=== PATIENT | female | born 1975 | race Caucasian/White ===

== ENCOUNTER 2018-07-06 12:18 | Inpatient (IN) ==
[2018-07-06] MEDS ORDERED: Ondansetron 4 MG/2 ML VIAL ONE ×2 (12:26→16:58)
[2018-07-06] MEDS ORDERED: Ondansetron 4 MG/2 ML VIAL IVP ONE (12:31)
[2018-07-06] MEDS ORDERED: *HR* FentaNYL (PF) 100 MCG/2 ML VIAL IVP ONE ×3 (12:33→14:10)
--- NOTE | 2018-07-06 12:37 | Emergency Department Note ---
Disposition Clinical Impression: Volvulus of intestine Abdominal pain Qualifiers: Abdominal location: unspecified location Qualified Code(s): R10.9 - Unspecified abdominal pain Disposition: Admitted As Inpatient Condition: Fair Referrals: Ignacio Yun MD [Primary Care Provider] - Forms: ED Satisfaction Letter, Work/School Release Time of Disposition: 13:22 Abdominal Pain HPI - General Chief Complaint: ED Abdominal Pain Stated Complaint: Abdominal Pain Time Seen by Provider: 07/06/18 12:24 Source: patient, EMS Mode of arrival: EMS Limitations: no limitations Nursing Notes Reviewed: Yes Vital Signs Reviewed: Yes - History of Present Illness HPI Narrative: Back pain started last night. Abdominal pain started just prior to arrival. She admits to eating a pancake earlier this morning. Nausea with emesis 1. No other reported acute GI/ symptoms. She states her abdominal pain is diffuse. She has never experienced pain like this in the past. Pt Subjective Complaint: abdominal pain Onset (ago): minute(s) Consistency: constant Location: diffuse Pain Severity: severe Pain Scale: 9 Quality: aching Radiation: back Migration to: no migration Improves with: nothing Worsens with: nothing Associated symptoms: Reports: nausea, vomiting Treatments prior to arrival: none - Related Data Home Medications Medication Instructions Recorded Confirmed ALPRAZolam [Xanax 0.5 MG Tablet] 0.5 mg PO Q8H 07/06/18 07/06/18 Methocarbamol [Robaxin] 750 mg PO BID 07/06/18 07/06/18 Pregabalin [Lyrica] 150 mg PO BID 07/06/18 07/06/18 Allergies Allergy/AdvReac Type Severity Reaction Status Date / Time codeine Allergy Hives Verified 07/06/18 14:41 Cyclobenzaprine Allergy Joint Pain Verified 07/06/18 14:41 [From Flexeril] tramadol [From Ultram] Allergy Rash Verified 07/06/18 14:41 morphine AdvReac Nausea Verified 07/06/18 14:41 All systems ED: reviewed and negative except as stated. Constitutional: Reports: as per HPI Eyes: Reports: as per HPI ENT ED: Reports: as per HPI Cardiovascular: Reports: as per HPI Respiratory: Reports: as per HPI Gastrointestinal: Reports: abdominal pain, nausea, vomiting Genitourinary: Reports: as per HPI Musculoskeletal: Reports: back pain Integumentary: Reports: as per HPI Neurological: Reports: as per HPI Psychiatric: Reports: as per HPI Endocrine: Reports: as per HPI Hematological/Lymphatic: Reports: as per HPI Allergic/Immunologic: Reports: as per HPI Abdominal Pain PMH - Past Medical History Medical history: Reports: fibromyalgia, other Female Surgical History: Reports: hysterectomy, other NEONATAL ICU COORDINATOR history: Reports: no NEONATAL ICU COORDINATOR history Psychiatric history: Reports: anxiety, depression - Social History Smoking status: Current every day smoker Alcohol use: Reports: none Drug use: Reports: none Physical Exam Tearful - General Limitations: no limitations General appearance: alert, anxious - Head Head exam: atraumatic - Eye Eye exam: Present: normal appearance - ENT ENT exam: normal exam - Neck Neck exam: Present: normal inspection - Chest Chest inspection: Present: normal inspection, symmetric chest wall rise - Respiratory Respiratory exam: Present: normal lung sounds bilaterally - Cardiovascular Cardiovascular exam: Present: regular rate, normal rhythm, normal heart sounds - Abdominal Exam Abdominal exam: Present: soft, tenderness (Mild diffuse tenderness without guarding, rebound, rigidity), normal bowel sounds. Absent: distention, guarding , rebound - Rectal Exam Rectal exam: Present: deferred - Extremities Exam Extremities exam: Present: normal inspection - Neurological Exam Neurological exam: Present: alert, oriented X3, CN II-XII intact - Psychiatric Psychiatric exam: Present: anxious - Skin Skin exam: Present: warm, dry, intact Course Course Narrative: Diffuse abdominal pain starting just prior to arrival. Patient appears uncomfortable on exam. Workup including CT abdomen and pelvis without IV or oral contrast as well as labs and urinalysis initiated. Patient will be given symptomatically medications - Reevaluation(s) Reevaluation #1: CT findings discussed with the radiologist. 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 Call placed to surgeon legal receptionist Reevaluation #2: Dr. Delong recs repeating CT abd/pelvis with IV and oral contrast Reevaluation #3: Pain persist. Case discussed with the surgeon again who had spoken with the radiologist. The surgeon recommends admission to the medicine service. Additional Reevaluation(s): I reread the transcribed report from the most recent CT scan and now says suggestion of midgut volvulus. I then spoke with the interpreting radiologist who states he amended the diagnosis but inform the surgeon and not me. I will again discussed this case with the surgeon and arrange admission - Consultations Consultation #1: Call placed to Dr. Delong, surgery legal receptionist Time: 13:22 Consultation #2: call again placed to Dr. Delong Time: 15:51 Vital Signs Temperature 98.5 F 07/06/18 12:22 Pulse Rate 92 07/06/18 12:22 Respiratory Rate 16 07/06/18 12:22 Blood Pressure 126/100 07/06/18 12:22 O2 Sat by Pulse Oximetry 98 07/06/18 12:22 Temperature 98.5 F 07/06/18 12:22 Pulse Rate 81 07/06/18 13:01 Respiratory Rate 16 07/06/18 13:01 Blood Pressure 113/47 07/06/18 13:01 O2 Sat by Pulse Oximetry 100 07/06/18 13:01 Oxygen Delivery Oxygen Delivery Room Air Abdominal Pain - Lab Data Lab results reviewed: Yes I reviewed the patient's lab results. Result diagrams: 07/06/18 12:37 07/06/18 12:37 Lab Results 07/06/18 07/06/18 07/06/18 Range/Units 12:37 12:37 12:37 WBC 11.0 (4.3-11.1) K/mcL RBC 4.48 (3.82-4.97) M/mcL Hgb 13.6 (11.5-15.4) g/dL Hct 40.0 (35.3-44.9) % MCV 89.3 (83.0-100.0) fL MCH 30.4 (28.0-33.3) pg MCHC 34.0 (31.6-35.5) g/dL RDW 13.4 (11.5-14.5) % Plt Count 244 (140-400) K/mcL MPV 10.0 (9.4-12.4) fL Immature Gran % 0.4 (0-4) % Seg Neutrophils % 51.9 % Lymphocytes % 40.6 % Monocytes % 6.3 % Eosinophils % 0.6 % Basophils % 0.2 % Neutrophils # 5.7 (1.6-8.9) K/mcL Lymphocytes # 4.5 (0.6-4.6) K/mcL Monocytes # 0.7 (0.0-1.3) K/mcL Eosinophils # 0.1 (0.0-0.6) K/mcL Basophils # 0.0 (0.0-0.2) K/mcL PT 10.6 (9.4-12.1) Seconds INR 0.9 Sodium 137 (136-145) mEq/L Potassium 3.4 L (3.5-5.1) mEq/L Chloride 101 (98-107) mEq/L Carbon Dioxide 24 (23-29) mEq/L BUN 11 (6-20) mg/dL Creatinine 0.70 (0.60-1.20) mg/dL Est GFR ( Amer) > 60 (> 60) Est GFR (Non-Af Amer) > 60 (> 60) BUN/Creatinine Ratio 16 (6-26) Glucose 141 H (70-105) mg/dL Calculated Osmolality 286 (280-300) Lactic Acid (0.5-2.2) mmol/L Calcium 9.9 (8.6-10.3) mg/dL Total Bilirubin 0.5 (0.3-1.0) mg/dL Direct Bilirubin 0.1 (0.0-0.2) mg/dL Indirect Bilirubin 0.4 (0.0-1.2) mg/dL AST 24 (13-39) Units/L ALT 18 (7-52) Units/L Alkaline Phosphatase 86 (34-104) Units/L Troponin I < 0.03 (< 0.04) ng/mL Serum Total Protein 8.1 (6.4-8.9) g/dL Albumin 4.5 (3.5-5.7) g/dL Globulin 3.6 H (2.4-3.5) g/dL Albumin/Globulin Ratio 1.3 (1.1-2.2) Lipase 35 (11-82) Units/L Urine Color (Yellow) Urine Clarity (Clear) Urine pH (5.0-8.0) pH Units Ur Specific [place] (1.010-1.025) Urine Protein (Neg-Trace) mg/dL Urine Glucose (UA) (Normal) mg/dL Urine Ketones (Negative) mg/dL Urine Blood (Negative) Urine Nitrite (Negative) Urine Bilirubin (Negative) Urine Urobilinogen (Normal) mg/dL Ur Leukocyte Esterase (Negative) Urine Microscopic RBC (0-3) per hpf Urine Microscopic WBC (0-3) per hpf Ur Squamous Epith Cells (None-Few) per lpf Urine Bacteria (None-Few) per hpf Hyaline Casts (None-Few) per lpf Ur Culture Indicated? (NO) 07/06/18 07/06/18 Range/Units 12:37 13:11 WBC (4.3-11.1) K/mcL RBC (3.82-4.97) M/mcL Hgb (11.5-15.4) g/dL Hct (35.3-44.9) % MCV (83.0-100.0) fL MCH (28.0-33.3) pg MCHC (31.6-35.5) g/dL RDW (11.5-14.5) % Plt Count (140-400) K/mcL MPV (9.4-12.4) fL Immature Gran % (0-4) % Seg Neutrophils % % Lymphocytes % % Monocytes % % Eosinophils % % Basophils % % Neutrophils # (1.6-8.9) K/mcL Lymphocytes # (0.6-4.6) K/mcL Monocytes # (0.0-1.3) K/mcL Eosinophils # (0.0-0.6) K/mcL Basophils # (0.0-0.2) K/mcL PT (9.4-12.1) Seconds INR Sodium (136-145) mEq/L Potassium (3.5-5.1) mEq/L Chloride (98-107) mEq/L Carbon Dioxide (23-29) mEq/L BUN (6-20) mg/dL Creatinine (0.60-1.20) mg/dL Est GFR ( Amer) (> 60) Est GFR (Non-Af Amer) (> 60) BUN/Creatinine Ratio (6-26) Glucose (70-105) mg/dL Calculated Osmolality (280-300) Lactic Acid 2.7 H (0.5-2.2) mmol/L Calcium (8.6-10.3) mg/dL Total Bilirubin (0.3-1.0) mg/dL Direct Bilirubin (0.0-0.2) mg/dL Indirect Bilirubin (0.0-1.2) mg/dL AST (13-39) Units/L ALT (7-52) Units/L Alkaline Phosphatase (34-104) Units/L Troponin I (< 0.04) ng/mL Serum Total Protein (6.4-8.9) g/dL Albumin (3.5-5.7) g/dL Globulin (2.4-3.5) g/dL Albumin/Globulin Ratio (1.1-2.2) Lipase (11-82) Units/L Urine Color Yellow (Yellow) Urine Clarity Clear (Clear) Urine pH 7.5 (5.0-8.0) pH Units Ur Specific [place] 1.028 H (1.010-1.025) Urine Protein 30 H (Neg-Trace) mg/dL Urine Glucose (UA) Normal (Normal) mg/dL Urine Ketones Negative (Negative) mg/dL Urine Blood Negative (Negative) Urine Nitrite Negative (Negative) Urine Bilirubin Negative (Negative) Urine Urobilinogen Normal (Normal) mg/dL Ur Leukocyte Esterase Negative (Negative) Urine Microscopic RBC 0-3 (0-3) per hpf Urine Microscopic WBC 5-15 H (0-3) per hpf Ur Squamous Epith Cells Many H (None-Few) per lpf Urine Bacteria None Seen (None-Few) per hpf Hyaline Casts None Seen (None-Few) per lpf Ur Culture Indicated? NO (NO) - Radiology Data Radiology results reviewed: Yes I reviewed the patient's radiology results. - EKG Data EKG attestation: Yes I reviewed and interpreted this EKG. EKG results narrative: Normal sinus rhythm rate 77 CT 166 QRS 95 QT/QTc 416/471. No acute ST segment elevation Critical Care Time Critical Care Time: Yes Total Critical Care Time: 60 Attestation: The high probability of a clinically significant, sudden or life threatening deterioration of the [] system(s) required my full and direct attention, intervention and personal management. The aggregate critical care time was [] minutes. This time is in addition to time spent performing reported procedures but includes the following: [] Data Review and interpretation [] Patient assessment and monitoring of vital signs [] Documentation [] Medication orders and management
[2018-07-06 12:45] LABS: Basophils % 0.2 %; Eosinophils # 0.1 K/mcL (0.0-0.6); Eosinophils % 0.6 %; Hemoglobin 13.6 g/dL (11.5-15.4); Immature Granulocytes % 0.4 % (0-4); Lymphocytes # 4.5 K/mcL (0.6-4.6); Lymphocytes % 40.6 %; Mean Corpuscular Hemoglobin 30.4 pg (28.0-33.3); Mean Corpuscular Volume 89.3 fL (83.0-100.0); Monocytes # 0.7 K/mcL (0.0-1.3); Monocytes % 6.3 %; Neutrophils # 5.7 K/mcL (1.6-8.9); Platelet Count 244 K/mcL (140-400); Red Blood Count 4.48 M/mcL (3.82-4.97); Red Cell Distribution Width 13.4 % (11.5-14.5); Segmented Neutrophils % 51.9 %
[2018-07-06 12:50] LABS: INR 0.9; Prothrombin Time 10.6 Seconds (9.4-12.1)
[2018-07-06 13:12] LABS: Alanine Aminotransferase 18 Units/L (7-52); Albumin 4.5 g/dL (3.5-5.7); Albumin/Globulin Ratio 1.3 (1.1-2.2); Alkaline Phosphatase 86 Units/L (34-104); Aspartate Amino Transferase 24 Units/L (13-39); BUN/Creatinine Ratio 16 (6-26); Bilirubin,Direct 0.1 mg/dL (0.0-0.2); Bilirubin,Indirect 0.4 mg/dL (0.0-1.2); Bilirubin,Total 0.5 mg/dL (0.3-1.0); Blood Urea Nitrogen 11 mg/dL (6-20); Calcium 9.9 mg/dL (8.6-10.3); Carbon Dioxide 24 mEq/L (23-29); Chloride 101 mEq/L (98-107); Globulin 3.6 g/dL (2.4-3.5); Glucose 141 mg/dL (70-105); Lipase 35 Units/L (11-82); Osmolality,Calculated 286 (280-300); Potassium 3.4 mEq/L (3.5-5.1); Sodium 137 mEq/L (136-145); Total Protein 8.1 g/dL (6.4-8.9); Troponin I < 0.03 ng/mL (< 0.04); eGFR For Non-African Americans > 60 (> 60)
[2018-07-06 13:37] LABS: Bilirubin,Urine Negative (Negative); Blood,Urine Negative (Negative); Clarity,Urine Clear (Clear); Color,Urine Yellow (Yellow); Glucose,Urine (UA) Normal (Normal); Ketones,Urine Negative (Negative); Leukocyte Esterase,Urine Negative (Negative); Nitrite,Urine Negative (Negative); PH,Urine 7.5 pH Units (5.0-8.0); Protein,Urine 30 mg/dL (Neg-Trace); Specific Gravity,Urine 1.028 (1.010-1.025); Urobilinogen,Urine Normal (Normal)
[2018-07-06 13:39] LABS: Bacteria,Urine None Seen per hpf (None-Few); Hyaline Casts,Urine None Seen per lpf (None-Few); RBC,Urine 0-3 per hpf (0-3); Squamous Epithelial Cell,Urine Many per lpf (None-Few)
[2018-07-06] MEDS ORDERED: Isovue-370 500 ML INFUS..BTL IV ONE (13:41)
[2018-07-06] MEDS ORDERED: Isovue-370 500 ML INFUS..BTL PO ONE (15:06)
[2018-07-06] MEDS ORDERED: Ketorolac 15 MG/ML VIAL IVP ONE (16:15)
[2018-07-06] MEDS ORDERED: Famotidine 20 MG/2 ML VIAL IVP ONE (16:15)
[2018-07-06] MEDS ORDERED: 0.9 % Sodium Chloride 2,000 ML ONE (16:44)
[2018-07-06] MEDS ORDERED: Piperacillin/Tazobactam 3.375 GM in 0.9 % Sodium Chloride Mini Bag 100 ML IVPB ONE (16:50)
[2018-07-06] MEDS ORDERED: Dexamethasone 4 MG/ML VIAL ONE (16:58)
[2018-07-06] MEDS ORDERED: *HR* Propofol 200 MG/20 ML VIAL IVP ONE (16:58)
[2018-07-06] MEDS ORDERED: *HR* Midazolam HCl 2 MG/2 ML VIAL ONE (16:58)
[2018-07-06] MEDS ORDERED: Lidocaine -MPF 2% 2 ML VIAL ONE (16:58)
[2018-07-06] MEDS ORDERED: *HR* FentaNYL (PF) 100 MCG/2 ML VIAL ONE ×2 (16:58→18:20)
[2018-07-06] MEDS ORDERED: *HR* Succinylcholine 200 MG/10 ML VIAL IVP ONE (16:59)
[2018-07-06] MEDS ORDERED: Lidocaine -MPF 4% 5 ML AMPUL ONE (16:59)
--- NOTE | 2018-07-06 17:11 | General Surg History&Physical ---
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 All questions were answered. History of Present Illness Chief complaint: abdominal pain HPI: Ms. Hamm is a 42 year old female current smoker, prior QIANA now with 10hr-12hr history of worsening abdominal pain in all quadrants. The patient stated it started with back pain, but quickly developed abdominal pain. No alleviating factors. The pain is associated with nausea and vomiting. She has never had a pain like this before. A CT scan was obtained, which was reviewed and evaluated by me, which demonstrated mesenteric swirling and edema with thickening of the small bowel. 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 General surgery was consulted for management. Past Med Surg Social Fam HX - Past Medical History Medical history: fibromyalgia, other Additional medical history: ulcers Psychiatric history: anxiety, depression - Past Surgical History Additional surgical history: carpal tunnel - Social History Smoking Status: Current every day smoker Smokeless Tobacco Status: No Alcohol use: none Drug use: none - Additional Family History Additional family history: non contributory Medications and Allergies ALPRAZolam [Xanax 0.5 MG Tablet] 0.5 mg PO Q8H 07/06/18 [History] Methocarbamol [Robaxin] 750 mg PO BID 07/06/18 [History] Pregabalin [Lyrica] 150 mg PO BID 07/06/18 [History] 3 Allergy/AdvReac Type Severity Reaction Status Date / Time codeine Allergy Hives Verified 07/06/18 14:41 Cyclobenzaprine Allergy Joint Pain Verified 07/06/18 14:41 [From Flexeril] tramadol [From Ultram] Allergy Rash Verified 07/06/18 14:41 morphine AdvReac Nausea Verified 07/06/18 14:41 Review of Systems ROS unobtainable: due to mental status All systems PM: The remainder of the systems were reviewed and are negative General Surgery Exam Initial Vital Signs Temp Pulse Resp BP Pulse Ox 98.5 F 92 16 126/100 98 07/06/18 12:22 07/06/18 12:22 07/06/18 12:22 07/06/18 12:22 07/06/18 12:22 - General physical appearance well developed, no distress, moderate pain - Eyes other (no scleral icterus), normal ocular movement - ENT normocephalic - Neck no lymphadectomy - Respiratory normal expansion, normal respiratory effort - Cardiovascular Cardiovascular exam: Present: RRR - Abdomen Abdomen general surgery: Present: soft, tender Abdominal Tenderness: Present: RUQ, LUQ, RLQ, LLQ, diffusely - Integumentary Integumentary general surgery: Present: warm and dry - Neurologic Present: CN 2-12 grossly intact - Musculoskeletal Present: normal posture - Psychiatric Psychiatric general surgery: Present: A&Ox3 Results - Labs 07/06/18 12:37 07/06/18 12:37 Abnormal lab results Potassium 3.4 mEq/L (3.5-5.1) L 07/06/18 12:37 Glucose 141 mg/dL (70-105) H 07/06/18 12:37 Globulin 3.6 g/dL (2.4-3.5) H 07/06/18 12:37 Ur Specific [place] 1.028 (1.010-1.025) H 07/06/18 13:11 Urine Protein 30 mg/dL (Neg-Trace) H 07/06/18 13:11 Urine Microscopic WBC 5-15 per hpf (0-3) H 07/06/18 13:11 Ur Squamous Epith Cells Many per lpf (None-Few) H 07/06/18 13:11 All other labs normal. - Imaging CT scan - abdomen: report reviewed, image reviewed CT scan - pelvis: report reviewed, image reviewed
--- NOTE | 2018-07-06 17:18 | Anesthesia Evaluation PreOp ---
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 History: Other (chronic back pain) Other Medical History: Other (fibromyalgia) Anesthesia History: No Prior Anesthetic Complications, Past Anesthesia ( hysterectomy) Alcohol Use: none Drug use: none Medications and Allergies ALPRAZolam [Xanax 0.5 MG Tablet] 0.5 mg PO Q8H 07/06/18 [History] Methocarbamol [Robaxin] 750 mg PO BID 07/06/18 [History] Pregabalin [Lyrica] 150 mg PO BID 07/06/18 [History] 3 Allergy/AdvReac Type Severity Reaction Status Date / Time codeine Allergy Hives Verified 07/06/18 14:41 Cyclobenzaprine Allergy Joint Pain Verified 07/06/18 14:41 [From Flexeril] tramadol [From Ultram] Allergy Rash Verified 07/06/18 14:41 morphine AdvReac Nausea Verified 07/06/18 14:41 - Meds/Allergy Pre-op Review Medications Reviewed: Yes Allergies Reviewed: Yes Beta Blockers on Current Med List: No Anesthesia Results - Labs 07/06/18 12:37 07/06/18 12:37 - Imaging EKG: report reviewed (03/02/2018 SINUS TACHYCARDIA, POSSIBLE ATRIAL FLUTTER ABNORMAL RHYTHM ECG) Anesthesia Exam Vital Signs/O2 Sat, Most Current Temp Pulse Resp BP Pulse Ox 98.5 F 81 14 137/64 100 07/06/18 12:22 07/06/18 13:01 07/06/18 17:10 07/06/18 17:10 07/06/18 13:01 Height: 5'9''/1.75m Weight: 140 lbs/63.5 kg NPO (# of Hours): 5 Pain Scale: 10 (abdomen) Pain Scale Used: Numeric (1 - 10) - HEENT Pupil (Motor): EOMI Mallampati: II Teeth: Edentulous Oral Opening: Greater than 3 - EXECUTIVE ASSISTANT TO PRESIDENT LOC: Oriented EXECUTIVE ASSISTANT TO PRESIDENT Motor: Normal RUE, Normal LUE, Normal RLE, Normal LLE, Normal Face EXECUTIVE ASSISTANT TO PRESIDENT Sensory: Normal: RUE, LUE, RLE, LLE, Face - Cardiac Rhythm: Regular Murmur: None - Pulmonary Breath Sounds: bilateral Clear Respiratory Effort: Symmetrical Anesthesia Assess/Plan ASA Score: 2, E Modified Charlene Scale for Level of Consciousness: Cooperative, oriented, and tranquil Anesthetic Plan: General Monitoring Plan: Standard Monitors Recovery Plan: PACU
[2018-07-06] MEDS ORDERED: *HR* Rocuronium Bromide 50 MG/5 ML VIAL ONE (17:20)
[2018-07-06] MEDS ORDERED: Neostigmine Methylsulfate 3 MG/3 ML SYRINGE ONE (18:05)
[2018-07-06] MEDS ORDERED: *HR* Meperidine 25 MG/ML SYRINGE IVP PRN (18:38)
[2018-07-06] MEDS ORDERED: *HR* FentaNYL (PF) 100 MCG/2 ML VIAL IVP PRN (18:38)
[2018-07-06] MEDS ORDERED: *HR* Labetalol 20 MG/4 ML SYRINGE IVP PRN (18:38)
[2018-07-06] MEDS ORDERED: *HR* Promethazine 25 MG/ML VIAL IVP PRN (18:38)
[2018-07-06] MEDS ORDERED: *HR* Meperidine 25 MG/ML SYRINGE ONE (18:41)
[2018-07-06] MEDS: *HR* HYDROmorphone (PF) 1 MG/ML SYRINGE IVP PRN ×3 (18:52→19:16)
--- NOTE | 2018-07-06 19:16 | Operative Note ---
Date of procedure: 07/06/18 Pre-op diagnosis: midgut volvulus Post-op diagnosis: same Procedure: exploratory laparotomy lysis of adhesion reduction of midgut volvulus removal of foreign body Implants: none Complications: none Anesthesia: RAFFI Surgeon: Skip Delong Was there an title i assistant present: Yes Manager Of Disaster Recovery: Jm Amaya Manager Of Disaster Recovery Other: Lottie Do Estimated blood loss (cc): 5 Specimen: none Condition: stable Disposition: PACU Procedure in Detail: The patient was brought into the operating room suite. The patient was placed in the supine position. Mechanical DVT prophylaxis was initiated. The patient underwent smooth induction of general endotracheal anesthesia. The patient was prepped and draped in the usual fashion. Preoperative antibiotics were given. A timeout was held identifying the correct patient, pathology, and procedure. Everyone was in agreement and we began a procedure. I created a midline incision. Dissected through the subcutaneous tissue to the fascia and into the peritoneum. Upon entry there was turbid fluid which was suctioned; No malodorous fluid. No evidence of feculence. I started by running the bowel beginning at the cecum and going proximal. I quickly encountered the point of obstruction which appeared to be an ahesive band. I also noted an open space beneath the adhesive band which was likely the point of heriation/obstruction. I ensured that there was no bowel within the small space by bluntly lysing the adhesion. There were more adhesions along the edge of the bowel wall and mesentery along the point of obstruction which was sharply lysed with metzenbaum scissors. It should be stated that there was a small staple, likely from her hysterectomy that was involved in the adhesive band that likely was the nidus for the scarring. This was removed. It should be stated that the chyle/lymphatic channels were prominent along the bowel and mesentery. There was also some scarring along the mesentery and bowel at the point of obstruction. No evidence of a meckel's diverticulum. I then evacuated the pelvis. No obvious bowel ischemia nor necrosis. I went to the ligament of treitz and evaluated the retroperitoneum and mesentery. No evidence of pathology. It was at this point that I realized that the point of obstruction was addressed /resolved and there was no other pathology to address. I then used the looped PDS suture to close the fascia in a running fascia. I then stapled the skin closed. I concluded the procedure. The patient was escorted to PACU in stable condition.
[2018-07-06] MEDS ORDERED: Ringers Solution, Lactated 1,000 ML ONE (19:17)
--- NOTE | 2018-07-06 19:22 | Anesthesia Evaluation Post Op ---
Date of Encounter: 07/06/18 Time of Encounter: 19:20 - Vital Signs Vital Signs: Vital Signs/O2 Sat, Most Current Temp Pulse Resp BP Pulse Ox 100.4 F H 75 18 116/69 96 07/06/18 18:59 07/06/18 19:09 07/06/18 19:09 07/06/18 19:09 07/06/18 19:09 - Lungs Lungs: Clear Ascult./Percussion - Airway Airway: Non-obstructed - Cardiovascular Regular Rate - Mental Status Mental Status: Alert & Oriented, Answers Appropriately - Pain Pain Scale: 9 (has rec'd iv med for pain, appears to not be in acute pain, states pain has improved) Pain Scale used: Numeric (1 - 10) - Nausea Vomiting Nausea Vomiting: Not Present - Hydration Hydration: NPO, Has not voided - Discharge PostOp Status: Transfer Patient to floor
[2018-07-06] MEDS ORDERED: *HR* HYDROmorphone 20 MG/20 ML PCA IVC PRN (20:05)
[2018-07-06] MEDS: 0.9 % Sodium Chloride w KCl 20 MEQ/1,000 ML MLS IVC SCH (20:34)
[2018-07-07] MEDS: 0.9 % Sodium Chloride w KCl 20 MEQ/1,000 ML MLS IVC SCH ×2 (05:40→15:44)
[2018-07-07 08:47] LABS: BUN/Creatinine Ratio 21 (6-26); Blood Urea Nitrogen 11 mg/dL (6-20); Carbon Dioxide 23 mEq/L (23-29); Chloride 106 mEq/L (98-107); Glucose 132 mg/dL (70-105); Magnesium 1.9 mg/dL (1.6-2.6); Osmolality,Calculated 279 (280-300); Phosphorous 3.6 mg/dL (2.7-4.5); Sodium 134 mEq/L (136-145); eGFR For Non-African Americans > 60 (> 60)
[2018-07-07] MEDS: *HR* LORazepam 2 MG/ML VIAL IVP PRN ×2 (09:09→17:14)
--- NOTE | 2018-07-07 09:33 | General Surgery Progress Note ---
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 POD #1 Date of procedure: 07/06/18 Pre-op diagnosis: midgut volvulus Post-op diagnosis: same Procedure: exploratory laparotomy lysis of adhesion reduction of midgut volvulus removal of foreign body Implants: none Complications: none Anesthesia: GETA Surgeon: Skip Delong Remove NG tube Begin sips of clear liquids slowly Pain management as ordered IV fluids as ordered Supportive care We will continue to monitor clinical progress Subjective Patient reports: feels better, still having pain, no flatus, no bowel movement, other (Patient says she still having a lot of pain and soreness from the surgery , but her pain is more Werness today. She has not had a bowel movement and no gas passing yet after surgery.) Objective Vital Signs - Last 8 Hours Temp Pulse Resp BP Pulse Ox 07/07/18 06:38 98.6 F 70 16 123/76 94 07/07/18 03:37 98.3 F 76 17 119/75 96 Intake and Output 07/06/18 07/07/18 07/07/18 23:59 07:59 15:59 Intake Total 0 / 0 120 / 120 335 / 335 Output Total 125 / 125 600 / 600 Balance -125 / -125 -480 / -480 335 / 335 Intake: IV Fluids 335 / 335 KCl 20 mEq in 0.9% Sodium 335 / 335 Chloride 20 meq In 1,000 ml @ 100 mls/hr IVC .Q10H [facility] Rx#: [id number] Oral 0 / 0 120 / 120 0 / 0 Output: Urine 120 / 120 400 / 400 Estimated Blood Loss 5 / 5 Gastric Drainage 200 / 200 Other: Meal NPO Percent of Meal Consumed 0% # Voids 1 1 # Bowel Movements 0 Weight 63.5 kg Blood Glucose* 147 139 Patient Weight 07/07/18 23:59 Weight 63.5 kg - General physical appearance well developed, well nourished, moderate distress - Respiratory normal expansion, normal respiratory effort, clear to auscultation - Cardiovascular Cardiovascular exam: Present: RRR, no murmurs/rubs/gallops - Abdomen Abdomen: Present: soft, tender. Absent: bowel sounds present Abdominal Tenderness: diffusely - Incision Incision: Present: draining, intact, serosanguinous - Integumentary no rash, no growths, no abnormal pigmentation - Musculoskeletal normal posture - Psychiatric oriented to time, oriented to person, oriented to place - Labs 07/06/18 12:37 07/07/18 07:58 Diabetes panel 07/07/18 Range/Units 07:58 Sodium 134 L (136-145) mEq/L Potassium 4.0 (3.5-5.1) mEq/L Chloride 106 (98-107) mEq/L Carbon Dioxide 23 (23-29) mEq/L BUN 11 (6-20) mg/dL Creatinine 0.53 L (0.60-1.20) mg/dL Glucose 132 H (70-105) mg/dL Calcium 9.0 (8.6-10.3) mg/dL Calcium panel 07/07/18 Range/Units 07:58 Calcium 9.0 (8.6-10.3) mg/dL Phosphorus 3.6 (2.7-4.5) mg/dL Pituitary panel 07/07/18 Range/Units 07:58 Sodium 134 L (136-145) mEq/L Potassium 4.0 (3.5-5.1) mEq/L Chloride 106 (98-107) mEq/L Carbon Dioxide 23 (23-29) mEq/L BUN 11 (6-20) mg/dL Creatinine 0.53 L (0.60-1.20) mg/dL Glucose 132 H (70-105) mg/dL Calcium 9.0 (8.6-10.3) mg/dL Adrenal panel 07/07/18 Range/Units 07:58 Sodium 134 L (136-145) mEq/L Potassium 4.0 (3.5-5.1) mEq/L Chloride 106 (98-107) mEq/L Carbon Dioxide 23 (23-29) mEq/L BUN 11 (6-20) mg/dL Creatinine 0.53 L (0.60-1.20) mg/dL Glucose 132 H (70-105) mg/dL Calcium 9.0 (8.6-10.3) mg/dL - VTE Documentation of Mechanical Device: Intermittent pneumatic compression device Consult Discharge Plan - Plan Referrals: Ignacio Yun MD [Primary Care Provider] - <Skip Delong - Last Filed: 07/07/18 11:03> Date of Encounter: 07/07/18 - Assessment and Plan (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 Objective Vital Signs - Last 8 Hours Temp Pulse Resp BP Pulse Ox 07/07/18 10:34 98.5 F 74 16 131/80 98 07/07/18 06:38 98.6 F 70 16 123/76 94 07/07/18 03:37 98.3 F 76 17 119/75 96 Intake and Output 07/06/18 07/07/18 07/07/18 23:59 07:59 15:59 Intake Total 0 / 0 120 / 120 335 / 335 Output Total 125 / 125 600 / 600 450 / 450 Balance -125 / -125 -480 / -480 -115 / -115 Intake: IV Fluids 335 / 335 KCl 20 mEq in 0.9% Sodium 335 / 335 Chloride 20 meq In 1,000 ml @ 100 mls/hr IVC .Q10H [facility] Rx#: [id number] Oral 0 / 0 120 / 120 0 / 0 Output: Urine 120 / 120 400 / 400 350 / 350 Estimated Blood Loss 5 / 5 Gastric Drainage 200 / 200 100 / 100 Other: Meal NPO Percent of Meal Consumed 0% # Voids 1 1 # Bowel Movements 0 Weight 63.5 kg Blood Glucose* 147 139 Patient Weight 07/07/18 23:59 Weight 63.5 kg - Labs 07/06/18 12:37 07/07/18 07:58 Diabetes panel 07/07/18 Range/Units 07:58 Sodium 134 L (136-145) mEq/L Potassium 4.0 (3.5-5.1) mEq/L Chloride 106 (98-107) mEq/L Carbon Dioxide 23 (23-29) mEq/L BUN 11 (6-20) mg/dL Creatinine 0.53 L (0.60-1.20) mg/dL Glucose 132 H (70-105) mg/dL Calcium 9.0 (8.6-10.3) mg/dL Calcium panel 07/07/18 Range/Units 07:58 Calcium 9.0 (8.6-10.3) mg/dL Phosphorus 3.6 (2.7-4.5) mg/dL Pituitary panel 07/07/18 Range/Units 07:58 Sodium 134 L (136-145) mEq/L Potassium 4.0 (3.5-5.1) mEq/L Chloride 106 (98-107) mEq/L Carbon Dioxide 23 (23-29) mEq/L BUN 11 (6-20) mg/dL Creatinine 0.53 L (0.60-1.20) mg/dL Glucose 132 H (70-105) mg/dL Calcium 9.0 (8.6-10.3) mg/dL Adrenal panel 07/07/18 Range/Units 07:58 Sodium 134 L (136-145) mEq/L Potassium 4.0 (3.5-5.1) mEq/L Chloride 106 (98-107) mEq/L Carbon Dioxide 23 (23-29) mEq/L BUN 11 (6-20) mg/dL Creatinine 0.53 L (0.60-1.20) mg/dL Glucose 132 H (70-105) mg/dL Calcium 9.0 (8.6-10.3) mg/dL - Attending Attestation I have personally seen and examined the patient. I have reviewed pertinent labs , imaging, progress notes, including this one. I agree with the above assessment and plan and wish to include the following... POD #1 s/p ex lap, ANNY, removal of foreign body, reduction of midgut volvulus; patient in expected amount of pain; she also take percocet 10mg 5 times a day so pain control will be challenging; patient willing to be patient as we find the appropriate balance; abd appropriately tender from incision; d/c ng: patient understands that is she develops an ileus and may need it reinserted starts sips: 250cc q shift non carbonated, non sweetened add basal to INTERNAL MEDICINE NURSE start ativan plan to restart home meds if she advances to full clears encourage activity IS usage 10 breaths an hr
[2018-07-07] MEDS: *HR* HYDROmorphone 20 MG/20 ML PCA IVC PRN (15:46)
--- NOTE | 2018-07-07 17:33 | Electrocardiograph Report ---
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
[2018-07-08] MEDS: *HR* LORazepam 2 MG/ML VIAL IVP PRN (01:03)
[2018-07-08] MEDS: 0.9 % Sodium Chloride w KCl 20 MEQ/1,000 ML MLS IVC SCH ×3 (01:59→22:10)
[2018-07-08] MEDS: *HR* HYDROmorphone 20 MG/20 ML PCA IVC PRN (08:43)
[2018-07-08] MEDS: Pregabalin 75 MG CAPSULE PO SCH ×2 (08:54→20:44)
[2018-07-08] MEDS: Methocarbamol 750 MG TABLET PO SCH ×2 (08:54→20:44)
[2018-07-08] MEDS: ALPRAZolam 0.5 MG TABLET PO PRN ×2 (09:03→17:00)
[2018-07-08] MEDS: Ketorolac 15 MG/ML VIAL IVP SCH ×3 (09:04→19:41)
--- NOTE | 2018-07-08 09:07 | General Surgery Progress Note ---
<HamRayne Wesly - Last Filed: 07/08/18 09:05> Date of Encounter: 07/08/18 Time of Encounter: 07:30 - Assessment and Plan (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 Date of procedure: 07/06/18 Pre-op diagnosis: midgut volvulus Post-op diagnosis: same Procedure: #1 exploratory laparotomy, #2 lysis of adhesion, #3 reduction of midgut volvulus, #4 removal of foreign body Implants: none Complications: none Anesthesia: GETA Surgeon: Skip Delong POD #2 as above. Pt reports abdominal pain is 10/10. She is histrionic on exam. 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 she is on chronic xanex and lyrica. Will restart these. Scheduled pain meds as above Wean EMERGENCY DEPARTMENT DIRECTOR later today restart home robaxin Qualifiers: Chronic pain type: other chronic pain Qualified Code(s): G89.29 - Other chronic pain (3) Anxiety Current Visit: Yes Status: Acute see above (4) Smoking history Current Visit: Yes Status: Acute scheduled duonebs and aggressive pulm toileting in the setting of recent surgery and smoking history. Nicotine patch if needed Subjective Patient reports: still having pain, tolerating liquids well, voiding w/o difficulty, no flatus, no bowel movement, afebrile Objective Vital Signs - Last 8 Hours Temp Pulse Resp BP Pulse Ox 07/08/18 06:36 98.8 F 68 14 123/78 96 07/08/18 03:10 98.7 F 81 15 114/70 97 Intake and Output 07/07/18 07/08/18 07/08/18 23:59 07:59 15:59 Intake Total 100 / 100 1000 / 1000 Output Total 600 / 600 1800 / 1800 Balance -500 / -500 -800 / -800 Intake: IV Fluids 1000 / 1000 KCl 20 mEq in 0.9% Sodium 1000 / 1000 Chloride 20 meq In 1,000 ml @ 100 mls/hr IVC .Q10H [facility] Rx#: [id number] Oral 100 / 100 0 / 0 Output: Urine 600 / 600 1800 / 1800 Other: Weight 63.9 kg - General physical appearance no distress - ENT normal nares, normal mucosa - Neck Neck exam: trachea midline - Respiratory normal expansion, normal respiratory effort, clear to auscultation - Cardiovascular Cardiovascular exam: Present: RRR - Abdomen Abdomen: Present: bowel sounds present, soft, tender (Histrionic on exam) Hernia: none - Incision Incision: Present: clean and dry, intact - Integumentary no growths - Neurologic normal coordination, normal sensation - Musculoskeletal normal posture - Psychiatric oriented to time, oriented to person, oriented to place, speech is normal, memory intact - Labs 07/06/18 12:37 07/07/18 07:58 - VTE Documentation of Mechanical Device: Intermittent pneumatic compression device Consult Discharge Plan - Plan Referrals: Ignacio Yun MD [Primary Care Provider] - <Skip Delong - Last Filed: 07/09/18 06:51> Date of Encounter: 07/09/18 - Assessment and Plan (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 Objective Vital Signs - Last 8 Hours Temp Pulse Resp BP Pulse Ox 07/09/18 06:33 98.3 F 71 14 120/75 97 07/09/18 03:33 98.2 F 59 16 102/70 97 07/09/18 00:45 14 97 07/08/18 23:57 97.9 F 60 15 108/69 99 Intake and Output 07/08/18 07/08/18 07/09/18 15:59 23:59 07:59 Intake Total 1000 / 1000 1680 / 1680 340 / 340 Output Total 850 / 850 1500 / 1500 1100 / 1100 Balance 150 / 150 180 / 180 -760 / -760 Intake: IV Fluids 1000 / 1000 1200 / 1200 100 / 100 KCl 20 mEq in 0.9% Sodium 1000 / 1000 1000 / 1000 Chloride 20 meq In 1,000 ml @ 100 mls/hr IVC .Q10H [facility] Rx#: [id number] Ofirmev 1,000 mg/100 ml 1,000 200 / 200 100 / 100 mg In 100 ml @ 400 mls/hr IVPB Q6HR [facility] Rx#:[id number] Oral 0 / 0 480 / 480 240 / 240 Output: Urine 850 / 850 1500 / 1500 1100 / 1100 Other: Meal Lunch Percent of Meal Consumed 0% # Bowel Movements 0 0 Weight 64.7 kg - Labs 07/09/18 05:12 07/07/18 07:58 - Attending Attestation I have personally seen and examined the patient. I have reviewed pertinent labs , imaging, progress notes, including this one. I agree with the above assessment and plan.
[2018-07-08] MEDS: Ipratropium/Albuterol Neb 3 ML IH SCH ×3 (11:09→20:21)
[2018-07-08] MEDS ORDERED: *HR* HYDROmorphone 20 MG/20 ML PCA IVC PRN (13:58)
[2018-07-08] MEDS: Acetaminophen IV 1,000 MG/100 ML INFUS..BTL IVPB SCH ×2 (14:47→19:00)
[2018-07-08] MEDS ORDERED: *HR* OxyCODONE Immed Rel 5 MG TABLET PO PRN (15:26)
[2018-07-08] MEDS: *HR* Heparin 5,000 UNIT/ML VIAL SQ SCH (18:40)
[2018-07-08] MEDS ORDERED: Ipratropium/Albuterol Neb 3 ML IH PRN (20:47)
[2018-07-09] MEDS: Acetaminophen IV 1,000 MG/100 ML INFUS..BTL IVPB SCH ×2 (00:25→05:54)
[2018-07-09] MEDS: Ketorolac 15 MG/ML VIAL IVP SCH ×2 (00:25→05:53)
[2018-07-09] MEDS ORDERED: *HR* HYDROmorphone 20 MG/20 ML PCA IVC PRN (04:59)
[2018-07-09 05:52] LABS: Basophils % 0.2 %; Eosinophils % 0.2 %; Hematocrit 33.2 % (35.3-44.9); Immature Granulocytes % 0.4 % (0-4); Lymphocytes # 2.2 K/mcL (0.6-4.6); Lymphocytes % 38.5 %; Mean Corpuscular HGB Conc 33.4 g/dL (31.6-35.5); Mean Corpuscular Hemoglobin 30.2 pg (28.0-33.3); Mean Corpuscular Volume 90.2 fL (83.0-100.0); Mean Platelet Volume 10.8 fL (9.4-12.4); Monocytes # 0.5 K/mcL (0.0-1.3); Monocytes % 8.6 %; Platelet Count 189 K/mcL (140-400); Red Blood Count 3.68 M/mcL (3.82-4.97); Red Cell Distribution Width 13.5 % (11.5-14.5); Segmented Neutrophils % 52.1 %
[2018-07-09] MEDS: *HR* Heparin 5,000 UNIT/ML VIAL SQ SCH (05:53)
[2018-07-09 06:03] LABS: Hemoglobin 11.1 g/dL (11.5-15.4)
[2018-07-09 06:34] VITALS: BP 120/75
[2018-07-09] MEDS ORDERED: *HR* OxyCODONE/APAP 5/325 TABLET PO ONE (07:17)
--- NOTE | 2018-07-09 07:24 | Discharge Summary ---
<Rayne Cheek - Last Filed: 07/09/18 07:22> Orders not resulted at time of discharge: Pending orders 07/09/18 04:00 BMP [Basic Metabolic Panel] AM 0400 Date of Encounter: 07/09/18 Time of Encounter: 07:26 - Discharge Diagnosis (1) Midgut volvulus Priority: Primary Status: Acute (2) Chronic pain Priority: Secondary Status: Acute Qualifiers: Chronic pain type: other chronic pain Qualified Code(s): G89.29 - Other chronic pain (3) Anxiety Priority: Secondary Status: Acute (4) Smoking history Priority: Secondary Status: Acute General Surgery Exam Initial Vital Signs Temp Pulse Resp BP Pulse Ox 98.5 F 92 16 126/100 98 07/06/18 12:22 07/06/18 12:22 07/06/18 12:22 07/06/18 12:22 07/06/18 12:22 Vital Signs Temp Pulse Resp BP Pulse Ox 07/09/18 06:33 98.3 F 71 14 120/75 97 07/09/18 03:33 98.2 F 59 16 102/70 97 07/09/18 00:45 14 97 07/08/18 23:57 97.9 F 60 15 108/69 99 07/08/18 20:21 16 96 07/08/18 20:15 98.6 F 70 13 95/54 97 07/08/18 15:57 16 98 07/08/18 14:12 98.3 F 86 14 105/69 97 07/08/18 11:11 14 96 07/08/18 10:42 97.6 F 65 14 110/78 96 Intake and Output 07/08/18 07/08/18 07/09/18 15:59 23:59 07:59 Intake Total 1000 / 1000 1680 / 1680 340 / 340 Output Total 850 / 850 1500 / 1500 1100 / 1100 Balance 150 / 150 180 / 180 -760 / -760 Intake: IV Fluids 1000 / 1000 1200 / 1200 100 / 100 KCl 20 mEq in 0.9% Sodium 1000 / 1000 1000 / 1000 Chloride 20 meq In 1,000 ml @ 100 mls/hr IVC .Q10H [facility] Rx#: [id number] Ofirmev 1,000 mg/100 ml 1,000 200 / 200 100 / 100 mg In 100 ml @ 400 mls/hr IVPB Q6HR [facility] Rx#:[id number] Oral 0 / 0 480 / 480 240 / 240 Output: Urine 850 / 850 1500 / 1500 1100 / 1100 Other: Meal Lunch Percent of Meal Consumed 0% # Bowel Movements 0 0 Weight 64.7 kg VITAL SIGNS: Reviewed. See [facility] GENERAL: In no apparent distress. HEENT: Normocephalic, atraumatic, pupils are equal and reactive, extraocular motions intact, oropharynx is pink and moist, there is no neck adenopathy or JVD noted. CHEST/RESPIRATORY: The thorax is free from signs of trauma. Lung sounds: clear to auscultation, normal respiratory effort CARDIAC: Regular rate and rhythm. Normal S1 and S2, without murmurs, gallops, or rubs. VASCULAR: No Edema. 2+ peripheral pulses. ABDOMEN: histrionic, soft, active bowel sounds INCISION: Surgical incision is clean, dry, and intact. There are no signs of cellulitis or infection noted. MUSCULOSKELETAL: Good range of motion of all major joints. Extremities without clubbing, cyanosis or edema. NEUROLOGIC EXAM: Alert and oriented x 3. Speech normal. Follows commands. PSYCHIATRIC: Mood normal. SKIN: No rash or lesions. - Hospital Course Hospital course: Ms. Hamm is a 42 year old female who presented on 07/06/2018 with a sudden onset of severe abdominal discomfort. She had a prior surgical history of a total abdominal hysterectomy. A CT was obtained which noted mesenteric swirling in edema, thickening of the small bowel consistent with a midgut volvulus. She was taken to the operating room where she underwent an exploratory laparotomy, lysis of adhesions, reduction of the midgut volvulus, and removal of foreign body. She is ambulating and voiding without difficulty, tolerating a diet without nausea or vomiting, vital signs are stable, and she is afebrile. Her abdominal discomfort is controlled. Of note she reports a chronic pain history for which she has not seen a chronic spray painter in a few months. We will begin discharge planning to home with a one-week prescription of oxycodone. She will follow-up in the office in 2 weeks. Time spent discussing smoking cessation with patient: 3 to 10 minutes - Time Spent with Patient Total time spent providing and/or coordinating discharge services: Less than 30 minutes - Discharge Medications Prescriptions: OxyCODONE/APAP 5/325 [Percocet 5/325 MG] 5 mg PO Q6HR PRN 7 Days #28 tablet PRN Reason: Pain Docusate [Colace] 100 mg PO BID #30 capsule Ibuprofen 800 mg PO Q8H #60 tablet Polyethylene Glycol 3350 [MiraLAX] 17 gm PO DAILY #30 powd.pack Home Medications: ALPRAZolam [Xanax 0.5 MG Tablet] 0.5 mg PO Q8H 07/06/18 [History] Methocarbamol [Robaxin] 750 mg PO BID 07/06/18 [History] Pregabalin [Lyrica] 150 mg PO BID 07/06/18 [History] Docusate [Colace] 100 mg PO BID #30 capsule 07/09/18 [Rx] Ibuprofen 800 mg PO Q8H #60 tablet 07/09/18 [Rx] OxyCODONE/APAP 5/325 [Percocet 5/325 MG] 5 mg PO Q6HR PRN 7 Days #28 tablet [Rx] Polyethylene Glycol 3350 [MiraLAX] 17 gm PO DAILY #30 powd.pack 07/09/18 [Rx] Allergies/Adverse Reactions: 3 Allergy/AdvReac Type Severity Reaction Status Date / Time codeine Allergy Hives Verified 07/06/18 14:41 Cyclobenzaprine Allergy Joint Pain Verified 07/06/18 14:41 [From Flexeril] tramadol [From Ultram] Allergy Rash Verified 07/06/18 14:41 morphine AdvReac Nausea Verified 07/06/18 14:41 Date of admission: 07/06/18 17:07 Primary care physician: Ignacio Yun, Consults: 07/08/18 08:05 Consult to Respiratory Therapy [CONS] Routine Reason for Consult: aggressive pulm toileting Time Notified: 08:05 Call Completed: Yes Discharging clinician: Skip Cheek) Anticipated date of discharge: 07/09/18 Labs on day of discharge: Labs from last 24 hours 07/09/18 05:12 WBC 5.7 RBC 3.68 L Hgb 11.1 L D Hct 33.2 L MCV 90.2 MCH 30.2 MCHC 33.4 RDW 13.5 Plt Count 189 MPV 10.8 Immature Gran % 0.4 Seg Neutrophils % 52.1 Lymphocytes % 38.5 Monocytes % 8.6 Eosinophils % 0.2 Basophils % 0.2 Neutrophils # 3.0 Lymphocytes # 2.2 Monocytes # 0.5 Eosinophils # 0.0 Basophils # 0.0 - Patient Status Disposition: Home, Self-Care Condition: Fair Functional capacity at discharge: independent ambulation Overall status at discharge: patient is progressing back to baseline - Discharge Instructions Instructions: How to Use an Incentive Spirometer (DC), Exploratory Laparotomy ( DC) Follow Up With: Skip eDlong MD [Non-Partnered Physician] - 07/28/18 10:00 am Additional Instructions: General Surgical Discharge Instructions 1. No pushing, pulling, or lifting greater than 15 lbs for 2-4 weeks (depending upon procedure). 2. You may shower beginning today, but no tub baths, soaking, or swimming for 2 weeks. 3. You may resume driving when you are off narcotics and are safe to react in a car. 4. Take ibuprofen every 8 hours for discomfort. If this does not relieve discomfort, you may take the as needed Percocet. Take narcotics as directed. Do not take more narcotics then directed and do not share your narcotics with any other person. Do not drink alcohol while on narcotics. 5. Take stool softeners (Colace) or a water based laxative (Miralax) while taking narcotics. You may hold for loose stools. 6. Report any fevers greater than 100.5F, increase abdominal discomfort, drainage that looks like pus, increased redness or pain at the surgical site, or any vomiting. 7. Report any pain in the calves, shortness of breath, or rapid heartbeat. 8. Follow-up in the office as directed. 9. If you were prescribed antibiotics, do not stop them without talking to your provider. - Diet and Activity Activity: increase activity as tolerated Diet: advance to your usual diet <Skip Delong - Last Filed: 07/09/18 16:36> Orders not resulted at time of discharge: Pending orders 07/09/18 04:00 BMP [Basic Metabolic Panel] AM 0400 Date of Encounter: 07/09/18 - Discharge Diagnosis (1) Midgut volvulus Status: Acute General Surgery Exam Initial Vital Signs Temp Pulse Resp BP Pulse Ox 98.5 F 92 16 126/100 98 07/06/18 12:22 07/06/18 12:22 07/06/18 12:22 07/06/18 12:22 07/06/18 12:22 - Hospital Course Hospital course: Ms. Hamm is a 42 year old female - Time Spent with Patient Total time spent providing and/or coordinating discharge services: Date of admission: 07/06/18 17:07 Primary care physician: Ignacio Yun, Consults: 07/08/18 08:05 Consult to Respiratory Therapy [CONS] Routine Reason for Consult: aggressive pulm toileting Time Notified: 08:05 Call Completed: Yes Labs on day of discharge: Labs from last 24 hours 07/09/18 05:12 WBC 5.7 RBC 3.68 L Hgb 11.1 L D Hct 33.2 L MCV 90.2 MCH 30.2 MCHC 33.4 RDW 13.5 Plt Count 189 MPV 10.8 Immature Gran % 0.4 Seg Neutrophils % 52.1 Lymphocytes % 38.5 Monocytes % 8.6 Eosinophils % 0.2 Basophils % 0.2 Neutrophils # 3.0 Lymphocytes # 2.2 Monocytes # 0.5 Eosinophils # 0.0 Basophils # 0.0 - Attending Attestation patient seen and examined. I have reviewed the labs, imaging, and notes with the team. I agree with the above assessment and plan.
[2018-07-09] MEDS: ALPRAZolam 0.5 MG TABLET PO PRN (08:15)
[2018-07-09] MEDS: Pregabalin 75 MG CAPSULE PO SCH (08:15)
[2018-07-09] MEDS: Methocarbamol 750 MG TABLET PO SCH (08:16)
[2018-07-09] MEDS ORDERED: *HR* OxyCODONE/APAP 5/325 TABLET PO PRN (11:30)
== END 2018-07-09 09:15 | disposition home or self-care (01) | DRG 230 ==
LOC: 3ANU 12:18 → EMEROOARM 12:18 → 3ANU 17:30
PROVIDERS: ADMIT Surgery; ATTEND Surgery

== ENCOUNTER 2020-04-19 15:24 | Inpatient (IN) ==
[2020-04-19] MEDS ORDERED: 0.9 % Sodium Chloride 1,000 ML IVC STA (15:43)
[2020-04-19] MEDS ORDERED: Ondansetron 4 MG/2 ML VIAL IVP STA (15:43)
[2020-04-19] MEDS ORDERED: Ketorolac 15 MG/ML VIAL IVP STA (15:45)
[2020-04-19 16:02] LABS: Basophils % 0.2 %; Hematocrit 31.2 % (35.3-44.9); Hemoglobin 10.6 g/dL (11.5-15.4); Immature Granulocytes % 1.1 % (0-4); Lymphocytes # 0.7 K/mcL (0.6-4.6); Lymphocytes % 5.7 %; Mean Corpuscular Volume 82.5 fL (83.0-100.0); Mean Platelet Volume 10.8 fL (9.4-12.4); Monocytes # 0.6 K/mcL (0.0-1.3); Monocytes % 4.6 %; Neutrophils # 11.5 K/mcL (1.6-8.9); Platelet Count 142 K/mcL (140-400); Red Blood Count 3.78 M/mcL (3.82-4.97); Red Cell Distribution Width 14.2 % (11.5-14.5); Segmented Neutrophils % 88.4 %
[2020-04-19] MEDS ORDERED: Isovue-370 500 ML BOTTLE IVP ONE (16:24)
[2020-04-19] MEDS ORDERED: 0.9 % Sodium Chloride 1,000 ML IVC ONE (16:45)
[2020-04-19] MEDS ORDERED: Piperacillin/Tazobactam 3.375 GM in 0.9 % Sodium Chloride Mini Bag 100 ML IVPB ONE (17:22)
[2020-04-19] MEDS ORDERED: Piperacillin/Tazobactam 3.375 GM in Water for inj. (sterile) 20 ML IVP STA (17:33)
[2020-04-19] MEDS ORDERED: 0.9 % Sodium Chloride 1,000 ML ONE (17:34)
[2020-04-19] MEDS ORDERED: Naloxone 0.4 MG/ML INJ IVP PRN (17:36)
[2020-04-19] MEDS ORDERED: Acetaminophen 325 MG TABLET PO PRN (17:36)
[2020-04-19] MEDS ORDERED: Vancomycin 1,000 MG VIAL ONE (17:39)
[2020-04-19] MEDS ORDERED: Water for inj. (sterile) 20 ML IV ONE (17:39)
[2020-04-19] MEDS ORDERED: Piperacillin/Tazobactam 3.375 GM VIAL ONE (17:39)
[2020-04-19] MEDS ORDERED: 0.9 % Sodium Chloride 250 ML ONE (17:43)
[2020-04-19 17:44] LABS: Alanine Aminotransferase 9 Units/L (7-52); Albumin 3.2 g/dL (3.5-5.7); Albumin/Globulin Ratio 0.9 (1.1-2.2); Alkaline Phosphatase 90 Units/L (34-104); Aspartate Amino Transferase 19 Units/L (13-39); BUN/Creatinine Ratio 12 (6-26); Bilirubin,Total 0.9 mg/dL (0.3-1.0); Blood Urea Nitrogen 7 mg/dL (6-20); Calcium 8.3 mg/dL (8.6-10.3); Carbon Dioxide 22 mEq/L (23-29); Chloride 92 mEq/L (98-107); Globulin 3.7 g/dL (2.4-3.5); Glucose 128 mg/dL (70-105); Osmolality,Calculated 262 (280-300); Potassium 2.9 mEq/L (3.5-5.1); Sodium 126 mEq/L (136-145); Total Protein 6.9 g/dL (6.4-8.9); eGFR For African Americans > 60 (> 60); eGFR For Non-African Americans > 60 (> 60)
[2020-04-19 17:50] LABS: Troponin I 0.03 ng/mL (< 0.04)
[2020-04-19] MEDS: 0.9 % Sodium Chloride 1,000 ML IVC SCH (19:35)
[2020-04-19] MEDS: *HR* OxyCODONE/APAP 5/325 TABLET PO PRN (19:36)
[2020-04-19] MEDS: *HR* Heparin 5,000 UNIT/ML VIAL SQ SCH (19:36)
[2020-04-19] MEDS ORDERED: hydrOXYzine pamoate 25 MG CAPSULE PO PRN (20:36)
[2020-04-19 22:24] LABS: Bilirubin,Urine Negative (Negative); Blood,Urine Negative (Negative); Clarity,Urine Clear (Clear); Color,Urine Yellow (Yellow); Glucose,Urine (UA) Normal (Normal); Ketones,Urine Negative (Negative); Leukocyte Esterase,Urine Negative (Negative); Nitrite,Urine Negative (Negative); PH,Urine 6.5 pH Units (5.0-8.0); Protein,Urine Negative (Neg-Trace); Specific Gravity,Urine 1.028 (1.010-1.025); Urobilinogen,Urine Normal (Normal)
[2020-04-19 22:35] LABS: Amphetamine Screen,Urine Negative ng/mL (Cutoff=1000); Barbiturate Screen,Urine Negative ng/mL (Cutoff=200); Benzodiazepines Screen,Urine Negative ng/mL (Cutoff=200); Cannabinoid Screen,Urine Negative ng/mL (Cutoff = 50); Cocaine Screen,Urine Negative ng/mL (Cutoff= 300); Opiate Screen,Urine Positive ng/mL (Cutoff=300); Phencyclidine Screen,Urine Negative ng/mL (Cutoff=25)
[2020-04-20] MEDS ORDERED: *HR* LORazepam 2 MG/ML VIAL IVP ONE (00:34)
[2020-04-20] MEDS: Piperacillin/Tazobactam 3.375 GM in 0.9 % Sodium Chloride Mini Bag 100 ML IVPB SCH ×3 (00:49→17:18)
[2020-04-20] MEDS: *HR* OxyCODONE/APAP 5/325 TABLET PO PRN ×2 (02:02→08:08)
[2020-04-20] MEDS: 0.9 % Sodium Chloride 1,000 ML IVC SCH (04:56)
[2020-04-20] MEDS: *HR* Heparin 5,000 UNIT/ML VIAL SQ SCH ×2 (05:33→17:19)
[2020-04-20] MEDS: Ondansetron 4 MG/2 ML VIAL IVP PRN ×3 (05:34→20:47)
[2020-04-20 06:05] LABS: Basophils % 0.2 %; Hematocrit 33.4 % (35.3-44.9); Hemoglobin 10.8 g/dL (11.5-15.4); Immature Granulocytes % 0.9 % (0-4); Lymphocytes % 10.8 %; Mean Corpuscular HGB Conc 32.3 g/dL (31.6-35.5); Mean Corpuscular Hemoglobin 27.5 pg (28.0-33.3); Mean Platelet Volume 11.1 fL (9.4-12.4); Monocytes # 1.2 K/mcL (0.0-1.3); Monocytes % 12.5 %; Neutrophils # 7.2 K/mcL (1.6-8.9); Platelet Count 131 K/mcL (140-400); Red Blood Count 3.93 M/mcL (3.82-4.97); Red Cell Distribution Width 14.5 % (11.5-14.5); Segmented Neutrophils % 75.6 %; White Blood Count 9.6 K/mcL (4.3-11.1)
[2020-04-20 06:15] LABS: INR 1.2; Prothrombin Time 13.2 Seconds (9.4-12.1)
[2020-04-20 06:17] LABS: Activated Partial Thrombo Time 21.9 Seconds (26.0-36.0)
[2020-04-20 06:24] LABS: BUN/Creatinine Ratio 15 (6-26); Blood Urea Nitrogen 9 mg/dL (6-20); Calcium 8.6 mg/dL (8.6-10.3); Carbon Dioxide 23 mEq/L (23-29); Chloride 104 mEq/L (98-107); Glucose 118 mg/dL (70-105); Magnesium 1.8 mg/dL (1.6-2.6); Osmolality,Calculated 276 (280-300); Phosphorous 1.8 mg/dL (2.7-4.5); Potassium 3.2 mEq/L (3.5-5.1); Sodium 133 mEq/L (136-145); eGFR For African Americans > 60 (> 60); eGFR For Non-African Americans > 60 (> 60)
[2020-04-20 08:46] LABS: mecA Methicillin-Resist Gene Not Detected (Not Detect)
[2020-04-20 08:47] LABS: Acinetobacter baumannii by PCR Not Detected (Not Detect); Candida albicans by PCR Not Detected (Not Detect); Candida glabrata by PCR Not Detected (Not Detect); Candida krusei by PCR Not Detected (Not Detect); Candida parapsilosis by PCR Not Detected (Not Detect); Candida tropicalis by PCR Not Detected (Not Detect); Enterobacter cloacae Cmplx PCR Not Detected (Not Detect); Enterobacteriaceae by PCR Not Detected (Not Detect); Enterococcus by PCR Not Detected (Not Detect); Escherichia coli by PCR Not Detected (Not Detect); Klebsiella oxytoca by PCR Not Detected (Not Detect); Klebsiella pneumoniae by PCR Not Detected (Not Detect); Proteus by PCR Not Detected (Not Detect); Pseudomonas aeruginosa by PCR Not Detected (Not Detect); Serratia marcescens by PCR Not Detected (Not Detect); Staphylococcus aureus by PCR DETECTED (Not Detect); Streptococcus agalactiae(B)PCR Not Detected (Not Detect); Streptococcus by PCR Not Detected (Not Detect); Streptococcus pneumoniae PCR Not Detected (Not Detect); Streptococcus pyogenes (A) PCR Not Detected (Not Detect)
[2020-04-20] MEDS ORDERED: Benzonatate 100 MG CAPSULE PO PRN (11:07)
[2020-04-20] MEDS: Ibuprofen 600 MG TABLET PO PRN (14:44)
[2020-04-20] MEDS ORDERED: *HR* LORazepam 2 MG/ML VIAL IVP PRN ×3 (23:41)
[2020-04-20] MEDS ORDERED: Methyl Salicylate/Menthol 57 APPL/57 GM TUBE TP PRN (23:42)
[2020-04-20] MEDS ORDERED: Nicotine 21 MG PATCH.TD24 TD PRN (23:44)
[2020-04-21] MEDS: Piperacillin/Tazobactam 3.375 GM in 0.9 % Sodium Chloride Mini Bag 100 ML IVPB SCH ×2 (01:11→08:24)
[2020-04-21] MEDS: Ibuprofen 600 MG TABLET PO PRN (01:28)
[2020-04-21] MEDS: *HR* Heparin 5,000 UNIT/ML VIAL SQ SCH (05:49)
[2020-04-21 06:02] VITALS: BP 109/58
[2020-04-21] MEDS ORDERED: Vancomycin 1,250 MG/262.5 ML IV.SOLN IVPB SCH (07:00)
[2020-04-21] MEDS ORDERED: Aminoglycoside Consult 1 EACH MC ONE (10:19)
== END 2020-04-21 10:20 | disposition home or self-care (01) | DRG 720 ==
LOC: EMEROOARM 15:24 → 2NENU 15:24 → SUATTDRO 04-20 11:47
PROVIDERS: ADMIT Internal Medicine; ATTEND Internal Medicine